=== PATIENT | female | born 1945 | race Caucasian/White ===

== ENCOUNTER → 2020-06-17 10:53 | Outpatient (BNVA) | payer MEDICARE, SELFPAY | PROVIDERS: PCP Internal Medicine; Visit Provider Internal Medicine Cardiovascular Disease | DX: I25.10 Atherosclerotic heart disease of native coronary artery without angina pectoris (principal); I10 Essential (primary) hypertension | CPT/HCPCS: 93005; 99212 ==

== ENCOUNTER 2020-06-18 06:53 | Outpatient (REF) | payer MEDICARE, SELFPAY ==
[2020-06-18 11:42] LABS: Cholesterol 122 mg/dL; HDL Cholesterol 37 mg/dL; LDL Cholesterol Calculated 55 mg/dl; Triglycerides 153 mg/dL
== END 2020-06-18 06:54 | disposition home or self-care (01) ==
LOC: HO.HMGCLDS 06:53
PROVIDERS: PCP Internal Medicine; Visit Provider Internal Medicine Cardiovascular Disease
DX: I25.10 Atherosclerotic heart disease of native coronary artery without angina pectoris (principal)
CPT/HCPCS: 36415; 80061

== ENCOUNTER 2020-10-12 08:16 | Outpatient (REF) | payer MEDICARE, SELFPAY ==
--- NOTE | ~2020-10-12 | MM_ITS ---
EXAMINATION: MM SCREENING DIGITAL BREAST TOMOSYNTHESIS, BILATERAL CLINICAL INFORMATION: Screening. Asymptomatic. Status post left mastectomy. COMPARISON: Mammography: October 03, 2019 and studies dating back to February 09, 2014 TECHNIQUE: Digital breast tomosynthesis is performed in both the craniocaudal and mediolateral oblique views along with computer-aided detection (CAD). Synthesized 2D images are generated from the tomosynthesis. FINDINGS: There are scattered areas of fibroglandular density (ACR BI-RADS breast composition Category b). There are no significant masses, abnormal calcifications, or other abnormalities. MM/MM tomosynthesis screening RT IMPRESSION: There are no significant changes from prior study. ASSESSMENT: BI-RADS 1: Negative RECOMMENDATION: Routine annual mammography screening. This patient's information was entered into a reminder system with a target due date for their next mammogram.
== END 2020-10-12 08:17 | disposition home or self-care (01) ==
LOC: HO.MAMMO 08:16
PROVIDERS: Visit Provider Internal Medicine
DX: Z12.31 Encounter for screening mammogram for malignant neoplasm of breast (principal)
CPT/HCPCS: 77063; 77067

== ENCOUNTER → 2021-06-23 09:30 | Outpatient (BNVA) | payer MEDICARE, SELFPAY | PROVIDERS: PCP Internal Medicine; Referring Provider Internal Medicine; Visit Provider Internal Medicine Cardiovascular Disease | DX: I25.10 Atherosclerotic heart disease of native coronary artery without angina pectoris (principal); I10 Essential (primary) hypertension | CPT/HCPCS: 93005; 99212 ==

== ENCOUNTER 2021-06-25 07:39 | Outpatient (REF) | payer MEDICARE, SELFPAY ==
[2021-06-25 11:33] LABS: Cholesterol 119 mg/dL; HDL Cholesterol 39 mg/dL; LDL Cholesterol Calculated 59 mg/dl; Triglycerides 105 mg/dL
== END 2021-06-25 07:40 | disposition home or self-care (01) ==
LOC: HO.HMGCLDS 07:39
PROVIDERS: PCP Internal Medicine; Visit Provider Internal Medicine Cardiovascular Disease
DX: I25.10 Atherosclerotic heart disease of native coronary artery without angina pectoris (principal)
CPT/HCPCS: 36415; 80061

== ENCOUNTER 2021-10-13 08:34 | Outpatient (REF) | payer MEDICARE, SELFPAY ==
--- NOTE | ~2021-10-13 | MM_ITS ---
EXAMINATION: MM SCREENING DIGITAL BREAST TOMOSYNTHESIS, RIGHT CLINICAL INFORMATION: Due for yearly. Prior left mastectomy, 2016 COMPARISON: Mammography: 10/12/2020, 10/03/2019, 09/27/2018 TECHNIQUE: Digital breast tomosynthesis is performed in both the craniocaudal and mediolateral oblique views along with computer-aided detection (CAD). Synthesized 2D images are generated from the tomosynthesis. FINDINGS: There are scattered areas of fibroglandular density (ACR BI-RADS breast composition Category b). There are no significant masses, abnormal calcifications, or other abnormalities. Parenchymal pattern is similar to prior studies. The axilla and skin contours are unremarkable. No significant changes. MM/MM tomosynthesis screening RT IMPRESSION: No mammographic evidence of malignancy. ASSESSMENT: BI-RADS 1: Negative RECOMMENDATION: Routine annual mammography screening. This patient's information was entered into a reminder system with a target due date for their next mammogram.
== END 2021-10-13 08:35 | disposition home or self-care (01) ==
LOC: HO.MAMMO 08:34
PROVIDERS: Visit Provider Internal Medicine
DX: Z12.31 Encounter for screening mammogram for malignant neoplasm of breast (principal)
CPT/HCPCS: 77063; 77067

== ENCOUNTER 2022-03-09 08:34 | Outpatient (REF) | payer MEDICARE, SELFPAY ==
--- NOTE | ~2022-03-09 | MM_ITS ---
EXAMINATION: BONE DENSITOMETRY CLINICAL INDICATION: Osteopenia. Breast cancer. COMPARISON: Previous BD dated 10/28/2015 and baseline BD dated 04/11/2007. TECHNIQUE: Using a Arch[employer]izer DXA System (software version: 13.1) manufactured by [employer], dual-energy x-ray absorptiometry was performed of the lumbar spine and left hip. The images are of good technical quality. Summary results are attached. FINDINGS: AP SPINE L1-L2 (excluding L3 and L4): The data of L1-L4 has been changed to exclude the L3 and L4 vertebral bodies, because degenerative changes at these levels may cause overestimation of lumbar spine density. Current: BMD 1.053 g/cm2, Z-score 0.7, T-score -0.9, normal, 6.8% decrease from previous, 2.8% increase from baseline (<5% change is not significant). Prior: BMD 1.130 g/cm2. Baseline: BMD 1.024 g/cm2. LEFT FEMUR, NECK: Current: BMD 0.826 g/cm2, Z-score 0.4, T-score -1.5, osteopenia. Prior: BMD 1.039 g/cm2. Baseline: BMD 1.050 g/cm2. LEFT FEMUR, TOTAL: Current: BMD 0.875 g/cm2, Z-score 0.7, T-score -1.1, osteopenia, 17.2% decrease from previous, 17.1% decrease from baseline (<5% change is not significant). Prior: BMD 1.057 g/cm2. Baseline: BMD 1.055 g/cm2. IDENTIFIED RISK FACTORS: Menopause, height loss, tobacco use (current smoker). HISTORY OF FRACTURE: None listed. MEDICATIONS: None listed. MM/XR DEXA axial skeleton IMPRESSION: 1. DIAGNOSIS: Osteopenia based on the lowest T-score value of -1.5 in the femoral neck applying World Health Organization criteria. 2. 10-YEAR FRACTURE RISK PREDICTION, FRAX: Major osteoporotic fracture (clinical spine, forearm, hip or shoulder) 11.8%. Hip fracture 4.0%. 3. Treatment Recommendations: NOF guidelines recommend consideration for treatment in postmenopausal women and men age 50 and older presenting with the following: -A hip or vertebral (clinical or morphometric) fracture. -T-score less than or equal to -2.5 at the femoral neck or spine after appropriate evaluation to exclude secondary causes. -Low bone mass at the hip or spine and a 10-year fracture probability by FRAX of greater than or equal to 3% for hip fracture or greater than or equal to 20% for major osteoporotic fracture based on the [place] adapted WHO algorithm. 4. Other Recommendations: All treatment decisions require clinical judgment and consideration of individual patient factors, including patient preferences, comorbidities, previous drug use, risk factors not captured in the FRAX model (e.g. frailty, falls, vitamin D deficiency, increased bone turnover, interval significant decline in bone density) and possible under or overestimation of fracture risk by FRAX. Additional medical evaluation for secondary cause of low bone mineral density may be appropriate. FUTURE SCAN RECOMMENDATION: People with diagnosed cases of osteoporosis or at high risk for fracture should have regular bone mineral density tests. For patients eligible for Medicare, routine testing is allowed once every 2 years. The testing frequency can be increased to one year for patients who have rapidly progressing disease, those who are receiving or discontinuing medical therapy to restore bone mass, or have additional risk factors.
== END 2022-03-09 08:35 | disposition home or self-care (01) ==
LOC: HO.MAMMO 08:34
PROVIDERS: PCP Internal Medicine; Visit Provider Internal Medicine
DX: Z13.820 Encounter for screening for osteoporosis (principal); M85.80 Other specified disorders of bone density and structure, unspecified site; Z78.0 Asymptomatic menopausal state
CPT/HCPCS: 77080

== ENCOUNTER → 2022-06-27 13:44 | Outpatient (BNVA) | payer MEDICARE, SELFPAY | PROVIDERS: PCP Internal Medicine; Referring Provider Internal Medicine; Visit Provider Internal Medicine Cardiovascular Disease | DX: I25.10 Atherosclerotic heart disease of native coronary artery without angina pectoris (principal); I10 Essential (primary) hypertension | CPT/HCPCS: 93005; 99212 ==

== ENCOUNTER 2022-06-28 08:26 | Outpatient (REF) | payer MEDICARE, SELFPAY ==
[2022-06-28 13:04] LABS: Cholesterol 133 mg/dL; HDL Cholesterol 37 mg/dL; LDL Cholesterol Calculated 64 mg/dl; Triglycerides 164 mg/dL
== END 2022-06-28 08:27 | disposition home or self-care (01) ==
LOC: HO.HMGCLDS 08:26
PROVIDERS: PCP Internal Medicine; Visit Provider Internal Medicine Cardiovascular Disease
DX: I25.10 Atherosclerotic heart disease of native coronary artery without angina pectoris (principal)
CPT/HCPCS: 36415; 80061

== ENCOUNTER 2022-10-16 08:26 | Outpatient (REF) | payer MEDICARE, SELFPAY ==
--- NOTE | ~2022-10-16 | MM_ITS ---
EXAMINATION: MM SCREENING DIGITAL BREAST TOMOSYNTHESIS, BILATERAL CLINICAL INFORMATION: Screening. Asymptomatic. The patient has had a prior left mastectomy in 2016. COMPARISON: Mammography: This study is compared with prior exams dating back to 2017. TECHNIQUE: Digital breast tomosynthesis is performed in both the craniocaudal and mediolateral oblique views along with computer-aided detection (CAD). Synthesized 2D images are generated from the tomosynthesis. FINDINGS: There are scattered areas of fibroglandular density (ACR BI-RADS breast composition Category b). There are no significant masses, abnormal calcifications, or other abnormalities. MM/MM tomosynthesis screening RT IMPRESSION: No mammographic evidence of malignancy. ASSESSMENT: BI-RADS BI-RADS 1 - Negative RECOMMENDATION: Routine annual mammography screening. 1 year F/U This examination should not preclude the clinical evaluation of a suspicious palpable abnormality. This patient's information was entered into a reminder system with a target due date for their next mammogram.
== END 2022-10-16 08:27 | disposition home or self-care (01) ==
LOC: HO.MAMMO 08:26
PROVIDERS: PCP Internal Medicine; Visit Provider Internal Medicine
DX: Z12.31 Encounter for screening mammogram for malignant neoplasm of breast (principal)
CPT/HCPCS: 77063; 77067

== ENCOUNTER → 2022-10-16 08:45 | Outpatient (BNV) | payer MEDICARE, SELFPAY | PROVIDERS: PCP Internal Medicine; Visit Provider Radiology Diagnostic Radiology | DX: Z12.31 Encounter for screening mammogram for malignant neoplasm of breast (principal) | CPT/HCPCS: 77063; 77067 ==

== ENCOUNTER → 2023-06-14 13:43 | Outpatient (REF) | payer MEDICARE, SELFPAY ==
--- NOTE | 2023-06-14 13:45 | CA_ITS ---
Transthoracic Echocardiogram Patient (Last, First, Middle): Suzan Ness, Gender: Female Date of : 1945 Age: 78 Procedure Date: 06/14/2023 Procedure Type: Transthoracic Echocardiogram Location: OP Height: 172.72 cm Weight: 67.13 kg BSA: 1.80 m2 Heart Rate: bpm BP: 148 / 90 mmHg Tv News Director: TO Referring MD: Benito Potter MD Visual Supervisor: Benito Potter MD Symptoms: I25.10 - Atherosclerotic heart disease of [place] coronary artery without... Study Quality: Fair/ no IV access ECG Rhythm: Sinus Conclusions: - 1. Normal LV systolic function with LVEF of 60-65% with grade 1 diastolic dysfunction 2. Normal cardiac valvular Doppler 3. Mildly dilated ascending aorta 3.9 cm 4. Normal RV systolic pressure 5. No pericardial effusion Findings Left Ventricle Normal left ventricular size, thickness, and systolic function. The visually estimated ejection fraction is between 60-65%. There is no evidence of regional wall motion abnormalities. Spectral Doppler is indicative of an impaired relaxation filling pattern. E/E prime ratio is <8, consistent with normal filling pressures. Evidence suggests grade I (mild) diastolic dysfunction. Right Ventricle Normal right ventricular cavity size and systolic function. Atria Both atria are normal in size. There is no evidence of interatrial shunt. Aortic Valve Normal aortic valve structure and function. There is no aortic valve stenosis. There is no aortic valve regurgitation. Mitral Valve Normal mitral valve structure and function. There is trace mitral valve regurgitation. There is no mitral valve stenosis. Pulmonic Valve The pulmonic valve is likely normal. Tricuspid Valve Normal tricuspid valve structure. There is trace tricuspid valve regurgitation. The right ventricular systolic pressure is normal. The right ventricular systolic pressure is 17 mmHg. Normal right atrial pressure. There is no evidence of pulmonary hypertension. Great Vessels The pulmonary artery was not well visualized. There is mild dilatation of the ascending aorta measuring 3.90 cm. Venous The inferior vena cava is normal in size and collapses greater than 50% with inspiration. Pericardium/Pleural There is no evidence of pericardial effusion. Prior Study Comparison Changes noted compared to prior study dated: 06/03/2018. Ascending aorta is mildly enlarged on the study Measurements 2D Linear Measurements IVSd: 0.88 0.6-0.9/0.6-1.0 cm LVIDd: 4.57 3.9-5.3/4.2-5.9 cm LVIDd Index: 2.54 2.4-3.2/2.2-3.1 cm/m2 LVIDs: 2.83 2.0-3.6 cm LVPWd: 0.81 0.7-1.1 cm LA Diam: 3.90 2.7-3.8/3.0-4.0 cm LAIDs Index: 2.17 1.5-2.3 cm/m2 LV Mass: 156.11 67-162/88-224 g LV Mass Index: 86.73 43-95/49-115 g/m2 LVOT Diam: 2.10 3.0+(-)1.3 cm 2D Systolic Function EF 4C: 64.10 >55% EF 2C: 56.30 >55% EF BiP: 60.40 >55% Mitral Valve MV Pk E: 0.42 MV PK A: 0.65 MV Decel Time: 296.00 E/A: 0.60 E'Lateral: 6.31 E'Medial: 3.59 E/E' Med: 11.70 E/E' Lat: 6.70 PHT: 87.00 MVA PHT: 2.53 Decel [place]: 1.42 Aortic Valve AoV Pk Tyler: 1.18 AoV Mn Tyler: 0.78 AoV VTI: 0.26 AoV Pk Grad: 6.00 Aov Mn Grad: 3.00 LIZA Cont.VTI: 2.85 LVOT LVOT Pk Tyler: 0.95 LVOT Mn Tyler: 0.61 LVOT VTI: 0.22 LVOT Pk Grad: 4.00 LVOT Mn Grad: 2.00 LVOT Diam: 2.10 LVOT Area: 3.46 Diastolic Function MV Pk E: 0.42 MV Pk A: 0.65 E/A: 0.60 E'Medial: 3.59 E/E' Med: 11.70 E' Laterial: 6.31 E/E' Lat: 6.70 Right Ventricle TAPSE (mm): 18.20 TVS' Tyler: 11.60 Tricuspid Valve TR Pk Tyler: 1.86 TR Pk Grad: 14.00 RA Press: 3.00 RVSP: 17.00 Great Vessels Aorta Sinus of Valsalva: 3.55 2.0-3.5 cm Ao Asc: 3.90 2.1-3.4 cm Ao Arch: 3.30 Updated in Other Vendor System with Status of Final Benito Potter MD electronically signed on 06/15/2023 4:21:31 PM with status of Final
== END ==
LOC: HO.CARD 13:43
PROVIDERS: PCP Internal Medicine; Visit Provider Internal Medicine Cardiovascular Disease
DX: I25.10 Atherosclerotic heart disease of native coronary artery without angina pectoris (principal)
CPT/HCPCS: 93306

== ENCOUNTER → 2023-06-14 13:45 | Outpatient (BNV) | payer MEDICARE, SELFPAY | PROVIDERS: PCP Internal Medicine; Visit Provider Internal Medicine Cardiovascular Disease | DX: I25.10 Atherosclerotic heart disease of native coronary artery without angina pectoris (principal) | CPT/HCPCS: 93306 ==

== ENCOUNTER 2023-06-28 10:02 | Outpatient (AMB) | payer MEDICARE, SELFPAY ==
--- NOTE | 2023-06-28 10:21 | MHC.OFFVIS ---
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 She is still grieving passing of her pet dog in May. She says she is also under lot of stress. Blood pressure at home is often elevated in the 140 range. She also is stressed out today she had to walk up 3 flights of stairs and had to deal with the QRS. A blood pressure is elevated up to 156 systolic when I measured it. She denies any exertional symptoms of chest pain or shortness of breath. Denies any orthopnea, PND, leg edema. Denies any prolonged palpitations. No lightheadedness, syncope. Takes all her medications regularly. Has not seen you for about 2 years. [facility], [facility] Medical History HTN (hypertension) Appendiceal tumor Breast cancer, left CAD (coronary artery disease) STEMI (ST elevation myocardial infarction) Surgical History Stented coronary artery History of laparoscopic appendectomy History of back surgery Family History Father CVD (cardiovascular disease) Mother Cancer Brother Substance use disorder Social History Household Members: Spouse Housing: House Alcohol intake: current Alcohol intake frequency: a few times a week Alcohol type: beer Patient Tobacco Use Status: Former Tobacco user Quit Date: 2009 Tobacco use type: Cigarette Cigarette Packs Per Day: 0.5 service: No Current occupational status: retired and disabled Review of Systems Const Denies chills, Denies fatigue, Denies fever(s), Denies frequent falls, Denies weakness, Denies weight gain and Denies weight loss ENT Denies dizziness Card Denies chest pain, Denies leg edema, Denies lightheadedness, Denies palpitations, Denies dyspnea, Denies dyspnea on exertion, Denies orthopnea and Denies other (loss of consciousness) Resp Denies cough, Denies dyspnea and Denies dyspnea on exertion GI Denies hematochezia and Denies change in stool character Musc Denies abnormal gait, Denies muscle weakness, Denies numbness, Denies radiating pain into limb and Denies tingling Neuro Denies abnormal gait, Denies dizziness, Denies frequent falls, Denies numbness, Denies tingling and Denies weakness Endo Denies fatigue and Denies palpitations Physical Exam Vital Signs: Last Vital Signs Pulse 81 06/28/23 10:22 BP 138/78 06/28/23 10:22 BMI result Body Mass Index 23.1 Const General: cooperative, comfortable, no acute distress, alert, awake and anxious Nutritional Appearance: thin Orientation/consciousness: patient oriented x3 Limitations: no limitations Neck Neck: Yes trachea midline, Yes supple and Yes no JVD Chest Chest palpation & inspection: normal inspection of the chest Resp Effort & Inspection: normal respiratory effort Auscultation: clear to auscultation bilaterally Cardio Jugular venous distension: no JVD Palpation: normal PMI Rate: regular rate Rhythm: regular rhythm Heart sounds: S1 normal heart sound present and S2 normal heart sound present GI Auscultation: normal bowel sounds Skin General skin exam: no rashes or lesions noted Neuro General: patient oriented x3 and no focal motor deficits Extrem General: Yes no clubbing, cyanosis or edema Psych Appearance: grossly normal Office Procedures EKG Details: EKG shows normal sinus rhythm with left anterior fascicular block and incomplete right bundle-branch block with nonspecific ST T wave changes [id number], Complete Assessment & Plan Assessment & Plan (1) CAD (coronary artery disease): Code(s): I25.10 - Atherosclerotic heart disease of [place] coronary artery without angina pectoris Plan: CAD status post LAD stenting remotely. Will check with exercise myocardial perfusion imaging to evaluate for progressive atherosclerosis as well as stent patency as recommendation. Continue aspirin therapy. Continue high-intensity statin therapy. Target goal LDL less than 70 mg/dL. Advised lipid panel in near future. Aggressive blood pressure control is advised, see below. Advised to participate in stress mitigation strategies. (2) HTN (hypertension): Code(s): I10 - Essential (primary) hypertension Plan: Uncontrolled high blood pressure due to increased stress and anxiety. At this point time will increase losartan to 100 mg daily. Target goal blood pressure less than 130/84 at all times. Advise echocardiogram in near future. Advised to call me for blood pressure remains elevated above 130 at all times and may need additional therapy. Low-salt diet was discussed. Stress mitigation strategies need to be pursued as well. Follow up in the clinic in 1 year's time, sooner p.r.n.. Thank you for allowing me to partake in the care Orders: Orders CA stress test Today I25.10 - Atherosclerotic heart disease of [place] coronary artery without angina pectoris NM cardiolite stress test 2 Weeks I25.10 - Atherosclerotic heart disease of [place] coronary artery without angina pectoris, R07.9 - Chest pain, unspecified CA echo transthoracic complete Today I10 - Essential (primary) hypertension Medications: New losartan 100 mg PO DAILY 30 tabs 11RF Refilled atorvastatin 80 mg PO DAILY 90 tabs 3RF Coding Level of Care Code Est Pt Level 4 (65392) Diagnoses CAD (coronary artery disease) I25.10 HTN (hypertension) I10 CPT Codes EKG - CPT: [id number], Complete ([id number])
[2023-06-28 10:22] VITALS: BP 138/78; PULSE 81; BMI 23.1
== END 2023-06-28 10:48 | disposition home or self-care (01) ==
PROVIDERS: PCP Internal Medicine; Visit Provider Internal Medicine Cardiovascular Disease
DX: I25.10 Atherosclerotic heart disease of native coronary artery without angina pectoris (principal); I10 Essential (primary) hypertension
CPT/HCPCS: 93010; 99214

== ENCOUNTER → 2023-06-28 10:02 | Outpatient (BNVA) | payer MEDICARE, SELFPAY | PROVIDERS: PCP Internal Medicine; Visit Provider Internal Medicine Cardiovascular Disease | DX: I25.10 Atherosclerotic heart disease of native coronary artery without angina pectoris (principal); I10 Essential (primary) hypertension | CPT/HCPCS: 93005; 99212 ==

== ENCOUNTER → 2023-07-13 07:54 | Outpatient (REF) | payer MEDICARE, SELFPAY ==
--- NOTE | ~2023-07-13 | NM_ITS ---
Exercise Myocardial perfusion study Indication: Chest pain to evaluate for myocardial ischemia Technique: The patient was brought in for an exercise perfusion study on 07/13/2023. Patient performed exercise as per Bryan protocol and was injected 25 mCi of sestamibi was given intravenously one target HR was achieved. Images were obtained using the SPECT gamma camera interlaced with the gating device. Images were obtained in supine position. Resting perfusion study was performed on 07/17/2023. Patient was administered 25 mCi of sestamibi intravenously at rest. Images were then obtained in supine position. Images obtained with and without CT attenuation. Total DLP 104 mGy-cm. Images were processed with the software and compared side to side in short axis, horizontal long axis and vertical long axis views. Findings: The stress perfusion study showed non attenuated images show normal uptake of radiotracer in all segments of LV myocardium. Attenuation corrected images show mildly reduced uptake in the apex of the LV myocardium.. The gated study shows normal LV systolic function with calculated LVEF of 73%. LV cavity is normal in size. The gated study shows normal systolic wall thickening and contraction of all segments. There is no transient ischemic dilation. Resting study shows nontender images show some thinning of the apex of the LV myocardium with attenuated corrected images show moderately reduced uptake in the apex. Gating at rest reveals normal systolic wall motion with ejection fraction at 72%. The findings are consistent with normal myocardial perfusion. NM/NM cardiolite stress test Impression: 1. Normal myocardial perfusion 2. Gated LVEF is 72% 3. Transient ischemic dilatation not present Stress EKG is borderline suggestive of ischemia
--- NOTE | 2023-07-13 07:56 | CA_ITS ---
Acquisition Time: 2023-07-13 07:51:59 Total Exercise Time: 00:05:00 Test Indications: CP Medications: SEE H Protocol: KING Max HR: 142 BPM 99% of Pred: 143 BPM Max BP: 188/094 mmHG Max Work Load: 6.7 METS Exercise stress test with exercise 5 min of King protocol, achieving 99% MPHR, without anginal symptoms, with isolated PACs and PVCs, with normotensive response to exercise, with borderline ST changes, can't exclude ischemia. Nuclear images pending. Test reviewed with Dr Potter Referred By: Benito Potter Overread By: KRISTINA CORDERO
== END ==
LOC: HO.CARD 07:54
PROVIDERS: PCP Internal Medicine; Visit Provider Internal Medicine Cardiovascular Disease
DX: R07.9 Chest pain, unspecified (principal); I25.10 Atherosclerotic heart disease of native coronary artery without angina pectoris
CPT/HCPCS: 78452; 93017; A9500

== ENCOUNTER → 2023-07-13 07:56 | Outpatient (BNV) | payer MEDICARE, SELFPAY | PROVIDERS: PCP Internal Medicine; Visit Provider Nurse Practitioner Family | DX: I49.1 Atrial premature depolarization (principal); I49.3 Ventricular premature depolarization | CPT/HCPCS: 78452; 93016; 93018 ==

== ENCOUNTER 2023-10-22 08:30 | Outpatient (REF) | payer MEDICARE, SELFPAY ==
--- NOTE | ~2023-10-22 | MM_ITS ---
EXAMINATION: MM SCREENING DIGITAL BREAST TOMOSYNTHESIS, BILATERAL CLINICAL INFORMATION: Screening. Asymptomatic. S/P LEFT mastectomy. COMPARISON: Mammography: This study is compared with prior exams dating back to 2018. TECHNIQUE: Digital breast tomosynthesis is performed in both the craniocaudal and mediolateral oblique views along with computer-aided detection (CAD). Synthesized 2D images are generated from the tomosynthesis. FINDINGS: There are scattered areas of fibroglandular density (ACR BI-RADS breast composition Category b). There are no significant masses, abnormal calcifications, or other abnormalities. MM/MM tomosynthesis screening RT IMPRESSION: No mammographic evidence of malignancy. ASSESSMENT: BI-RADS BI-RADS 1 - Negative RECOMMENDATION: Routine annual mammography screening. 1 year F/U This examination should not preclude the clinical evaluation of a suspicious palpable abnormality. This patient's information was entered into a reminder system with a target due date for their next mammogram.
== END 2023-10-22 08:31 | disposition home or self-care (01) ==
LOC: HO.MAMMO 08:30
PROVIDERS: PCP Internal Medicine; Visit Provider Internal Medicine
DX: Z12.31 Encounter for screening mammogram for malignant neoplasm of breast (principal)
CPT/HCPCS: 77063; 77067

== ENCOUNTER → 2023-10-22 09:00 | Outpatient (BNV) | payer MEDICARE, SELFPAY | PROVIDERS: PCP Internal Medicine; Visit Provider Radiology Diagnostic Radiology | DX: Z12.31 Encounter for screening mammogram for malignant neoplasm of breast (principal) | CPT/HCPCS: 77063; 77067 ==

== ENCOUNTER 2024-06-11 10:37 | Outpatient (AMB) | payer MEDICARE, SELFPAY ==
[2024-06-11 10:40] VITALS: BP 126/90; PULSE 69; RESP 15; TEMP 36.7; O2SAT 95; BMI 24.2
--- NOTE | 2024-06-11 10:40 | A.OFFVIS_ITS ---
Intake Vital Signs 06/11/24 10:40 Height 5 ft 8 in Weight 159 lb BMI 24.2 BP 126/90 H Blood Pressure Location Rt brachial Position Sitting Respiration 15 Pulse 69 Pulse Source Pulse Oximeter Temp 98.0 F Temp Source Oral Pulse Oximetry (%) 95 Oxygen Delivery Method Room Air Intake Visit Reasons: SWV G0439 Intake Note: Pt is here today for her SWV Allergies lisinopril [LISINOPRIL] Allergy (Intermediate, Verified 06/15/24 15:19) cough celecoxib [From CELEBREX] Allergy (Unknown, Verified 06/15/24 15:19) GI BLEED rofecoxib [From VIOXX] Allergy (Unknown, Verified 06/15/24 15:19) GI BLEED valdecoxib [From BEXTRA] Allergy (Unknown, Verified 06/15/24 15:19) GI BLEED Medication List - Last Reconciled 06/15/24 by Maryann Ramirez MD aspirin 81 mg PO DAILY atorvastatin 80 mg PO DAILY losartan 100 mg PO DAILY metoprolol succinate ER 25 mg PO DAILY HPI SWV G0439 HPI Details SWV ? 79 year old lady with history of hypertension, dyslipidemia, and history of invasive lobular Ca of left breast presents for her subsequent? Annual Wellness Visit.? Her last mammogram was 10/22/2023, and was already scheduled for repeat screening mammogram 10/27/2024. She had a screening colonoscopy done in 06/10/2010 which showed presence of diverticulosis, patient does not want to have a repeat screening again. Her last bone density was done 03/09/2022 which showed osteopenia in left femur and left femoral neck, normal in lumbar spine, does not want to get a repeated anymore She had a normal fasting lipid panel done 06/28/2022 which showed normal findings except for slightly elevated triglycerides, and normal fasting blood sugar 02/27/2022. She is up-to-date with her eye exam, goes to [facility] eye care She is up-to-date with her COVID vaccination , pneumonia vaccines, shingles vaccine, but does not get flu shots, and has not yet had her RSV vaccine or tetanus booster. ? Medical / Social History Reviewed? Past Medical History ?Yes . ? [place] of Care / Care Team list updated ?Yes . ? Surgical/Hospitalization History ?Yes . ? Current Medications (including OTC and supplements) ?Yes . ? Family History ?Yes . ? Tobacco Control form ?Yes . ? AUDIT-C (Alcohol use) form ?Yes . ? Illicit drug use in Social History ?Yes . ? Current diagnosis of depression? ?No, ? Appropriate PHQ2/PHQ9 completed ? Data entered by ?[employer] and reviewed by provider ? Fall Risk ? Fall History? Have you had any falls with injury in the past year? ?No . ? Have you had two or more falls in the past year? ?No . ? Fall Risk Assessment: ?No falls in the past year . ? HRA filled out by the patient, reviewed by Provider and scanned. ? SWV ? Balance? Romberg ?negative . ? Tandem walk ?Yes . ? Walk and Turn ?Yes . ? Rise from sit to stand ?Yes . ?Vision? Corrective lens ? Vision screen ? Up-to-date, goes to [facility] eye care ?Hearing? Whisper test ?pass . ?Written Plan?Completed. See Patient Documents.? [facility] Medical History (Updated 06/11/24 @ 11:22 by Maryann Ramirez MD) History of ST elevation myocardial infarction (STEMI) History of lobular carcinoma of breast HTN (hypertension) Appendiceal tumor CAD (coronary artery disease) Surgical History Stented coronary artery History of laparoscopic appendectomy History of back surgery Family History Father CVD (cardiovascular disease) Mother Cancer Brother Substance use disorder Social History Household Members: Spouse Housing: House Alcohol intake: current Alcohol intake frequency: a few times a week Alcohol type: beer Patient Tobacco Use Status: Former Tobacco user Tobacco use type: Cigarette Cigarette Packs Per Day: 0.5 service: No Current occupational status: retired and disabled Questionnaire Medicare Wellness Checkup [age] What gender do you identify with?: female During the past 4 weeks, how much have you been bothered by emotional problems such as feeling anxious, depressed, irritable, sad or downhearted, and blue?: slightly During the past 4 weeks, has your physical & emotional health limited your social activities with family, friends, neighbors, or groups?: not at all During the past 4 weeks, how much bodily pain have you generally had?: no pain During the past 4 weeks, was someone available to help you if you needed & wanted help?: yes, a little During the past 4 weeks, what was the hardest physical activity you could do for at least 2 minutes?: heavy Can you get to places out of walking distance without help? (For eg., can you travel alone on buses, taxis or drive your car?): Yes Can you go shopping for groceries or clothes without someone's help?: Yes Can you prepare your own meals?: Yes Can you do your housework without help?: Yes Because of any health problems, do you need the help of another person with your personal care needs such as eating, bathing, dressing or getting around the house?: No Can you handle your own money without help?: No During the past 4 weeks, how would you rate your health in general?: very good During the past 4 weeks how have things been going for you?: pretty well Are you having difficulties driving your car?: no Do you always fasten your seat belt when you are in a car?: yes, usually During past 4 weeks, have you been bothered by the following: never: Falling or dizzy when standing up, Sexual problems?, Trouble eating well?, Teeth or denture problems? and Problems using the telephone? and seldom: Tiredness or fatigue? Have you fallen 2 or more times in the past year?: No Are you afraid of falling?: No Are you a smoker?: yes, but I'm not ready to quit During the past 4 weeks, how many drinks of wine, beer, or other alcoholic beverages did you have?: 2-5 drinks per week Do you exercise for about 20 minutes 3 or more times a week?: yes, some of the time Have you been given information to help with the following?: yes: Hazards in your house that might hurt you? and yes: Keeping track of your medications? How often do you have trouble taking medicines the way you have been told to take them?: I always take medicine as prescribed How confident are you that you can control & manage most of your health problems?: very confident What is your race?: White Mini Mental State Exam (MMSE) Orientation What is the (year) (season) (date) (day) (month)?: year (2024), season (winter), date (06/11/2024), day (sunday) and month (june) Where are we (state) (county) (town or city) (hospital) (floor)?: state ([place]), [facility] ([place]), town or city ([place]) and hospital/clinic ([facility]) Score Score: 9 Activity of Daily Living Bathing - sponge bath, tub bath or shower: receives no assistance (gets in/out by self, if usual bathing means Dressing - getting clothes from closets & drawers, including inner/outer garments & fasteners.: gets clothes & gets completely dressed without help Toileting - going to the 'toilet room' for urine/bowel elimination & cleaning self/arranging clothes: goes to toilet room, cleans self, arranges clothes without help Transfer: moves in & out of bed and chair without help (may use support object) Continence: controls urination/bowel movements completely by self Feeding: feeds self without help Total Score: 0 Information obtained from: patient Using telephone: independent Traveling: independent Shopping: independent Preparing meals: independent Housework: independent Taking medicine: independent Managing money: independent PHQ-9 Over the last 2 weeks, how often have you been bothered by any of the following problems? 1. Little interest or pleasure in doing things: not at all 2. Feeling down, depressed, or hopeless: not at all 3. Trouble falling or staying asleep, or sleeping too much: not at all 4. Feeling tired or having little energy: several days 5. Poor appetite or overeating: not at all 6. Feeling bad about yourself - or that you are a failure or have let yourself or your family down: not at all 7. Trouble concentrating on things, such as reading the newspaper or watching television: not at all 8. Moving or speaking so slowly that other people could have noticed. Or the opposite - being so fidgety or restless that you have been moving around a lot more than usual: not at all 9. Thoughts that you would be better off or of hurting yourself in some way: not at all Total score: 1 Depression Screening Interpretation: Negative Depression Screening Done: Yes 66360 - PHQ-9 Billing: Yes Source: Developed by Drs. Darvin Gomes, Renita Castaneda, Jose Christiansen and colleagues, with an educational sandee from [employer]. Physical Exam Vital Signs: Last Vital Signs Temp 98.0 F 06/11/24 10:40 Pulse 69 06/11/24 10:40 Resp 15 06/11/24 10:40 BP 126/90 H 06/11/24 10:40 Pulse Ox 95 06/11/24 10:40 Oxygen Delivery Method Room Air 06/11/24 10:40 BMI result Body Mass Index 24.2 Assessment & Plan Assessment & Plan (1) Encounter for subsequent annual wellness visit (AWV) in Medicare patient: Code(s): Z00.00 - Encounter for general adult medical examination without abnormal findings Plan: Medical wellness checklist reviewed, discussed with patient and updated. Healthcare proxy and MOLST form completed today. Copy wellness visit given to patient (2) HTN (hypertension): Code(s): I10 - Essential (primary) hypertension Plan: Blood pressure at goal of less than 130/80. Continue with losartan and metoprolol the same dose. Reinforced importance of following a low sodium diet, getting regular exercise, and lowering stress levels. (3) CAD (coronary artery disease): Code(s): I25.10 - Atherosclerotic heart disease of [place] coronary artery without angina pectoris Plan: Continue aspirin 81 mg daily, and advised to get hypertension, cholesterol levels under good control, currently on atorvastatin, losartan and metoprolol succinate (4) History of lobular carcinoma of breast: Code(s): Z85.3 - Personal history of malignant neoplasm of breast Plan: Continue to get yearly mammograms (5) Advanced directives, counseling/discussion: Code(s): Z71.89 - Other specified counseling Plan: Initiated the conversation about Advanced Directives. Advanced Directives help patients prepare for current and future decisions about their medical treatment and place of care. Discussed with patient that it is a process where a patients current condition and prognosis are reviewed, their wishes for information regarding their illness are elicited, and likely medical dilemmas are presented and options discussed. Healthcare proxy form and MOLST form completed today. These forms can be amended as needed, reviewed yearly and make changes as needed Quality Reporting (2019) Depression/Bipolar (159/160/161/177) PHQ-9: Total score: 1 Coding Level of Care Code Medicare Subsequent (G0439) Diagnoses Encounter for subsequent annual wellness visit (AWV) in Medicare patient Z00.00 HTN (hypertension) I10 CAD (coronary artery disease) I25.10 History of lobular carcinoma of breast Z85.3 Advanced directives, counseling/discussion Z71.89 CPT Codes Advance Care Planning - Time spent: 16-45 minutes ([id number]) Additional Codes PHQ-9 - 28449 - PHQ-9 Billing: Yes ([id number]) Advance Care Planning Advance Care Planning discussion: Completed/Scanned Date of discussion: 06/11/24 Who was present: Patient Forms completed: Health Care Proxy and MOLST Time spent: 16-45 minutes Actual minutes spent: 3
== END 2024-06-11 11:39 | disposition home or self-care (01) ==
PROVIDERS: PCP Internal Medicine; Visit Provider Internal Medicine
DX: Z00.00 Encounter for general adult medical examination without abnormal findings (principal); I10 Essential (primary) hypertension; I25.10 Atherosclerotic heart disease of native coronary artery without angina pectoris; Z85.3 Personal history of malignant neoplasm of breast; Z71.89 Other specified counseling

== ENCOUNTER → 2024-06-11 10:37 | Outpatient (BNVA) | payer MEDICARE, SELFPAY | PROVIDERS: PCP Internal Medicine; Visit Provider Internal Medicine | DX: Z00.00 Encounter for general adult medical examination without abnormal findings (principal); I10 Essential (primary) hypertension; I25.10 Atherosclerotic heart disease of native coronary artery without angina pectoris; Z85.3 Personal history of malignant neoplasm of breast; Z71.89 Other specified counseling | CPT/HCPCS: 96127 ==

== ENCOUNTER 2024-06-23 09:32 | Outpatient (AMB) | payer MEDICARE, SELFPAY ==
[2024-06-23 09:39] VITALS: BP 118/70; PULSE 74; BMI 24.1
--- NOTE | 2024-06-23 09:39 | A.OFFVIS_ITS ---
Vital Signs 06/23/24 09:39 Height 5 ft 8 in Weight 158 lb 11.725 oz BMI 24.1 BP 118/70 Blood Pressure Location Rt brachial Position Sitting Pulse 74 Intake Visit Reasons: 1 yr f/up Intake Note: 1 year follow-up with ekg feeling good [employer] Developer Required: No Allergies lisinopril [LISINOPRIL] Allergy (Intermediate, Verified 06/15/24 15:19) cough celecoxib [From CELEBREX] Allergy (Unknown, Verified 06/15/24 15:19) GI BLEED rofecoxib [From VIOXX] Allergy (Unknown, Verified 06/15/24 15:19) GI BLEED valdecoxib [From BEXTRA] Allergy (Unknown, Verified 06/15/24 15:19) GI BLEED Medication List - Last Reconciled 06/23/24 by Benito Potter MD aspirin 81 mg PO DAILY atorvastatin 80 mg PO DAILY losartan 100 mg PO DAILY metoprolol succinate ER 25 mg PO DAILY HPI Comments Details: Suzan comes for follow-up. She has been doing very well from cardiac perspective. Denies any exertional symptoms of chest pain no worsening shortness of breath. Not PND, leg edema. No prolonged palpitation irregular heartbeat. No lightheadedness, syncope. Most recent LDL was 64 mg/dL. Blood pressure is generally been well controlled at home. [facility] Medical History History of ST elevation myocardial infarction (STEMI) History of lobular carcinoma of breast HTN (hypertension) Appendiceal tumor CAD (coronary artery disease) Surgical History Stented coronary artery History of laparoscopic appendectomy History of back surgery Family History Father CVD (cardiovascular disease) Mother Cancer Brother Substance use disorder Social History Household Members: Spouse Housing: House Alcohol intake: current Alcohol intake frequency: a few times a week Alcohol type: beer Patient Tobacco Use Status: Former Tobacco user Tobacco use type: Cigarette Cigarette Packs Per Day: 0.5 service: No Current occupational status: retired and disabled Review of Systems Const Denies chills, Denies fatigue, Denies fever(s), Denies frequent falls, Denies weakness, Denies weight gain and Denies weight loss ENT Denies dizziness Card Denies chest pain, Denies leg edema, Denies lightheadedness, Denies palpitations, Denies dyspnea, Denies dyspnea on exertion, Denies orthopnea and Denies other (loss of consciousness) Resp Denies cough, Denies dyspnea and Denies dyspnea on exertion GI Denies hematochezia and Denies change in stool character Musc Denies abnormal gait, Denies muscle weakness, Denies numbness, Denies radiating pain into limb and Denies tingling Neuro Denies abnormal gait, Denies dizziness, Denies frequent falls, Denies numbness, Denies tingling and Denies weakness Endo Denies fatigue and Denies palpitations Physical Exam Vital Signs: Last Vital Signs Pulse 74 06/23/24 09:39 BP 118/70 06/23/24 09:39 BMI result Body Mass Index 24.1 Const General: cooperative, comfortable, no acute distress, alert, awake and anxious Nutritional Appearance: thin Orientation/consciousness: patient oriented x3 Limitations: no limitations Neck Neck: Yes trachea midline, Yes supple and Yes no JVD Chest Chest palpation & inspection: normal inspection of the chest Resp Effort & Inspection: normal respiratory effort Auscultation: clear to auscultation bilaterally Cardio Jugular venous distension: no JVD Palpation: normal PMI Rate: regular rate Rhythm: regular rhythm Heart sounds: S1 normal heart sound present and S2 normal heart sound present GI Auscultation: normal bowel sounds Skin General skin exam: no rashes or lesions noted Neuro General: patient oriented x3 and no focal motor deficits Extrem General: Yes no clubbing, cyanosis or edema Psych Appearance: grossly normal Office Procedures EKG Details: EKG shows normal sinus rhythm with 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 She had a myocardial perfusion imaging last year which was within normal limits. No further workup is indicated. Continue lifelong aspirin therapy. Continue aggressive vascular risk factor modification. LDL is well optimized, continue high-intensity statin therapy which she is tolerating well. Continue aggressive blood pressure control. (2) HTN (hypertension): Code(s): I10 - Essential (primary) hypertension Category: Medical Plan: Blood pressure is currently well optimized advised to monitor blood pressure at home maintain a log. Target goal blood pressure less than 130/84. Low-salt diet was discussed. Stress mitigation strategies was discussed. Advised to call me with worsening blood pressure control. Advised to maintain activity level as tolerated. Will follow up in the clinic in 1 year's time, sooner p.r.n.. Thank you for allowing me to partake in her care Coding Level of Care Code Est Pt Level 4 (64818) Complex EM visit Add On G2211 Diagnoses CAD (coronary artery disease) I25.10 HTN (hypertension) I10 CPT Codes EKG - CPT: 42362-[id number], Complete ([id number])
== END 2024-06-23 10:03 | disposition home or self-care (01) ==
LOC: HO.HCS 09:32
PROVIDERS: PCP Internal Medicine; Visit Provider Internal Medicine Cardiovascular Disease
DX: I25.10 Atherosclerotic heart disease of native coronary artery without angina pectoris (principal); I10 Essential (primary) hypertension
CPT/HCPCS: 93010; 99214; G2211

== ENCOUNTER → 2024-06-23 09:32 | Outpatient (BNVA) | payer MEDICARE, SELFPAY | PROVIDERS: PCP Internal Medicine; Visit Provider Internal Medicine Cardiovascular Disease | DX: I25.10 Atherosclerotic heart disease of native coronary artery without angina pectoris (principal); I10 Essential (primary) hypertension | CPT/HCPCS: 93005; 99212 ==

== ENCOUNTER 2024-10-27 09:13 | Outpatient (REF) | payer MEDICARE, SELFPAY ==
--- OUTSIDE RECORDS SUMMARY | 2024-10-27 09:36 | XMS_ITS | Patient Health Record ---
[facility] Organization [facility] Address [address] [facility] [address] [place] [id number] Care Team Providers Care Manager Digital Name Role Phone Ha Adams Jr Reason For Referral No Information Plan Of Treatment No Information
== END 2024-10-27 09:14 | disposition home or self-care (01) ==
LOC: HO.MAMMO 09:13
PROVIDERS: PCP Internal Medicine; Visit Provider Internal Medicine
DX: Z12.31 Encounter for screening mammogram for malignant neoplasm of breast (principal)
CPT/HCPCS: 77063; 77067

== ENCOUNTER → 2024-10-27 09:30 | Outpatient (BNV) | payer MEDICARE, SELFPAY | PROVIDERS: PCP Internal Medicine; Visit Provider Radiology Body Imaging | DX: Z12.31 Encounter for screening mammogram for malignant neoplasm of breast (principal) | CPT/HCPCS: 77063; 77067 ==